=== PATIENT | female | born 1950 | race Caucasian/White ===

== ENCOUNTER 2018-05-22 18:22 | Observation (INO) | payer OTHER ==
[~2018-05-22] VITALS: Ht 170.2 cm; Wt 70.0 kg
[2018-05-22] MEDS ORDERED: VITAMIN D31000 IU PO (19:16)
[2018-05-22] MEDS ORDERED: MAGNESIUM200 MG PO (19:16)
[2018-05-22] MEDS ORDERED: AMBIEN 5MG TABLE5 MG PO (19:17)
[2018-05-22] MEDS ORDERED: PROBIOTIC FORMU1 CAP PO (19:17)
[2018-05-22] MEDS ORDERED: TURMERIC500 MG PO (19:17)
[2018-05-22] MEDS ORDERED: MELATIN 3 MG-11 TAB PO (19:17)
[2018-05-22] MEDS ORDERED: RESTASIS MULTI5.5 ML OP (19:18)
[2018-05-22] MEDS ORDERED: RECLAST5 MG/100 M IV (19:18)
[2018-05-22 21:58] VITALS: BP 121/78; PULSE 82; TEMP 97.7
[2018-05-23 00:40] VITALS: BP 122/73; PULSE 71; TEMP 98.4
[2018-05-23 04:27] VITALS: BP 120/73; PULSE 76; TEMP 98.2
[2018-05-23 08:35] VITALS: BP 130/88; PULSE 77; TEMP 97.8
== END 2018-05-23 10:25 | disposition home or self-care (01) ==
LOC: COL.ER 18:22 → SURG 20:51
DX: S02.2XXA Fracture of nasal bones, initial encounter for closed fracture (principal); Z85.3 Personal history of malignant neoplasm of breast; I48.91 Unspecified atrial fibrillation; M19.90 Unspecified osteoarthritis, unspecified site; Z96.653 Presence of artificial knee joint, bilateral; Z90.49 Acquired absence of other specified parts of digestive tract; Z88.1 Allergy status to other antibiotic agents; Z88.3 Allergy status to other anti-infective agents; Z88.5 Allergy status to narcotic agent; W01.198A Fall on same level from slipping, tripping and stumbling with subsequent striking against other object, initial encounter
CPT/HCPCS: G0378